=== PATIENT | male | born 1960 ===

== ENCOUNTER → 2019-01-26 | Outpatient (CLI) | payer OTHER ==
[2019-01-26 14:56] LABS: PLATELET COUNT, AUTOMATED 238 K/uL (150-450)
== END ==
LOC: LAB 14:36
PROVIDERS: ATTEND Nurse Practitioner Primary Care
DX: R10.2 Pelvic and perineal pain (principal); N50.89 Other specified disorders of the male genital organs
CPT/HCPCS: 36415; 81001; 82040; 82247; 82310; 82374; 82435; 82565; 82947; 84075; 84132; 84153; 84155; 84295; 84450; 84460; 84520; 85025

== ENCOUNTER → 2019-03-02 | Outpatient (CLI) | payer OTHER | LOC: LAB 09:47 | PROVIDERS: ATTEND Emergency Medicine | DX: Z13.220 Encounter for screening for lipoid disorders (principal) | CPT/HCPCS: 36415; 82465; 83718; 84478 ==

== ENCOUNTER → 2019-03-03 | Outpatient (CLI) | payer OTHER | LOC: LAB 14:09 | PROVIDERS: ATTEND Surgery | DX: L98.9 Disorder of the skin and subcutaneous tissue, unspecified (principal); L57.0 Actinic keratosis | CPT/HCPCS: 88305 ==

== ENCOUNTER → 2019-04-07 | Day surgery (SDC) | payer OTHER ==
[~2019-04-07] VITALS: Ht 177.8 cm; Wt 75.7 kg
[2019-04-07] VITALS (7 sets, daily range): BP systolic 94–136; BP diastolic 65–89
[~2019-04-07] MED LIST: LIDOCAINE MPF 1% 5 ML VIAL ONE; LIDOCAINE/SOD BICARB 8.4% SYR ID ONE; NORMOSOL R SOLN(*) 1000 ML BAG 1,000 ML IV PRN; PROPOFOL EMUL(*) 10MG/ML 20 ML 40 ML ONE
--- NOTE | 2019-04-07 08:49 | NUR ---
0815 SBAR WAS RECEIVED FROM DR. HURST AND VIKRAM WOOD. PATIENT WAS OBSTRUCTING SLIGHTLY AND WAS REPOSITIONED ON ARRIVAL. PATIENT ARRIVED ON 6 LITERS OXYMASK. LUNGS ARE CLEAR. BOWELS SOUNDS ARE HYPERACTIVE. PATIENT IS IN A L. LATERAL POSITION. IS PRESENT IN THE ROOM. UNABLE TO ASSESS PAIN OR NAUSEA.
--- NOTE | 2019-04-07 08:50 | Short(Outpt) Discharge Summary ---
Discharge Summary Reason for Hosp/Final Diag: (1) Encounter for screening colonoscopy Hospital Course & Plan: pt presented for colonoscopy. he tolerated the procedure well and will be discharged home when criteria met. Discharge Instructions Home Meds No Active Prescriptions or Reported Meds Diet: Regular Activity: As Tolerated Special Instructions: we will call you in 10 days with results. GADIEL ROBBINS Apr 07, 2019 08:50
--- NOTE | 2019-04-07 09:01 | NUR ---
0900 PATIENT CONTINUES TO SLEEP. PATIENT REMAINS BRADYCARDIAC. O2 WAS MOVED TO 1 LITER
--- NOTE | 2019-04-07 09:21 | NUR ---
0902 PATIENT WOKE UP. O2 WAS REMOVED AND IV WAS SALINE LOCKED
--- NOTE | 2019-04-07 09:45 | NUR ---
0915 PATIENT BEGAN DRINKING WATER 0940 IV WAS DC'D WITH CATH INTACT 0945 PATIENT WAS DC'D AND WAS AMBULATORY ON DISCHARGE. LUNGS ARE CLEAR. BOWEL SOUNDS ARE HYPERACTIVE. HE DENIES ANY PAIN OR NAUSEA. HE WAS ACCOMPANIED BY HIS HUBERT. SEE DISCHARGE ASSESSMENT.
== END ==
LOC: OR 01:05
PROVIDERS: ATTEND Surgery
DX: Z12.11 Encounter for screening for malignant neoplasm of colon (principal); D12.3 Benign neoplasm of transverse colon
CPT/HCPCS: 00811; 45385; 88305; J2001; J2704